=== PATIENT | male | born 1970 | race American Indian/Alaskan Native ===

== ENCOUNTER 2018-10-04 13:00 | Emergency (ER) | payer SELFPAY ==
[2018-10-04] MEDS ORDERED: Ondansetron 4 MG/2 ML SDV IVPUSH ONE (14:06)
[2018-10-04] MEDS ORDERED: Sodium Chloride 0.9% 1,000 ML IV SCH (14:15)
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
[2018-10-04] MEDS ORDERED: Ketorolac 30 MG/ML SDV IVPUSH ONE (15:04)
[2018-10-04] MEDS ORDERED: Alum Hydrox/Mag Hydrox/Simeth 30 ML, Lidocaine 2% 15 ML PO ONE ×2 (15:04)
[2018-10-04] MEDS ORDERED: Metoclopramide 10 MG/2 ML SDV IVPUSH ONE (16:35)
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
== END 2018-10-04 18:00 | disposition home or self-care (01) ==
LOC: JD.ED 13:00
DX: K52.9 Noninfective gastroenteritis and colitis, unspecified (principal); Z87.891 Personal history of nicotine dependence
CPT/HCPCS: 36415; 74019; 80053; 80306; 81001; 83690; 85007; 85027; 96361; 96374; 96375; 99284; A9270; G0480; J1885; J2405; J2765; J7040

== ENCOUNTER 2025-02-15 13:12 | Emergency (ER) | payer OTHER ==
[2025-02-15] MEDS: Ketorolac 60 MG/2 ML SDV IM ONE (15:03)
== END 2025-02-15 15:47 | disposition home or self-care (01) ==
LOC: JD.ED 13:12
DX: M48.36 Traumatic spondylopathy, lumbar region (principal); Z79.899 Other long term (current) drug therapy; W18.30XA Fall on same level, unspecified, initial encounter
CPT/HCPCS: 72131; 72192; 96372; 99283; J1885